=== PATIENT | female | born 1975 | race Caucasian/White ===

== ENCOUNTER → 2021-10-06 | Outpatient (CLI) | payer OTHER ==
--- NOTE | 2021-10-06 17:03 | KCIC ---
EXAM: XR RT WRIST 3VIEWS 10/06/2021 3:35 PM CLINICAL INDICATION: Right wrist pain for weeks after lifting injury COMPARISON: None TECHNIQUE: PA, oblique, and lateral views of the right breast FINDINGS: No acute fracture. Alignment is normal. Joint spaces are maintained. No focal soft tissue abnormality. IMPRESSION: No acute osseous abnormality. Electronically signed by: Radha Finney MD (10/06/2021 5:01 PM) [id number]
== END ==
LOC: KCIC 15:30
PROVIDERS: ATTEND Physician Assistant
DX: M25.531 Pain in right wrist (principal)
CPT/HCPCS: 73110